=== PATIENT | female | born 1980 ===

== ENCOUNTER 2018-05-19 14:20 | Outpatient (CLI) | payer OTHER ==
--- NOTE | 2018-05-19 16:16 | ULT ---
BILATERAL BREAST ULTRASOUND: 05/19/18 HISTORY: Bilateral palpable nodules. FINDINGS: Correlation is made with the mammogram of the same date. Sonographic evaluation of the region of palp able concern at the 8 o'clock position of the atrial areolar breast demonstrates a well circumscribed nonshadowing oval solid nodule measuring 5 x 3 x 8 mm most likely fibroadenoma. At the 2 o'clock position of the left breast 8 cm from the nipple is a 7 x 3 x 8 mm well circumscribe d hypoechoic nodule with echogenic hilum and flow consistent with lymph node corresponding to the fin ding on the mammogram. IMPRESSION: BIRADS 3: Probably Benign Finding Initial Short-Interval Follow-Up Suggested Initial short-term follow up with right breast ultrasound in 6 months. POS: OFF
--- NOTE | 2018-05-24 18:26 | MMO ---
Bilateral MAMMO Bilat Diag [facility]. CLINICAL HISTORY: Patient is 37 years old and is seen for diagnostic exam and palpable abnormality in the right breast. The patient has the following family history of breast cancer: paternal aunt and paternal grandmother. The patient has no personal history of cancer. The patient has a history of bilateral Implants in 2009 - benign. VIEWS: The views performed were: bilateral craniocaudal; bilateral craniocaudal with tomosynthesis; bilateral mediolateral oblique; bilateral mediolateral oblique with tomosynthesis; bilateral mediolateral; bilateral mediolateral with tomosynthesis; bilateral Implant displaced with tomosynthesis; and left exaggerated craniocaudal spot compression. FILMS COMPARED: The present examination has been compared to a prior imaging study performed at [facility] on 05/19/2018. MAMMOGRAM FINDINGS: There are scattered fibroglandular densities. Finding 1: Normal implants are present.. Finding 2: Left outer breast nodule is a lymph node on US. Finding 3: Palpable right beast nodule may represent a fibroadnome on US. Not definitely seen on mammo. IMPRESSION: FINDING 1: IMPLANT FINDINGS IN BOTH BREASTS ARE BENIGN. FINDING 2: FINDING IN THE LEFT BREAST IS BENIGN. FINDING 3: FINDING IN THE RIGHT BREAST IS PROBABLY BENIGN. FOLLOW-UP IN 6 MONTHS IS RECOMMENDED. THE RESULTS OF THIS EXAM WERE SENT TO THE PATIENT. ACR BI-RADS Category 3 - Probably benign finding - short interval follow-up suggested. [facility] will notify the patient of the need for additional imaging services. MAMMOGRAPHY NOTE: 1. A negative mammogram report should not delay a biopsy if a dominant of clinically suspicious mass is present. 2. Approximately 10% to 15% of breast cancers are not detected by mammography. 3. Adenosis and dense breasts may obscure an underlying neoplasm.
== END 2018-05-19 14:21 | disposition home or self-care (01) ==
LOC: BICMAMMO 14:20
PROVIDERS: ATTEND Family Medicine
DX: N63.10 Unspecified lump in the right breast, unspecified quadrant (principal); N63.20 Unspecified lump in the left breast, unspecified quadrant; Z98.82 Breast implant status; Z80.3 Family history of malignant neoplasm of breast
CPT/HCPCS: 77066; G0279